=== PATIENT | female | born 1990 | race Caucasian/White ===

== ENCOUNTER 2017-07-06 21:01 | Emergency (ER) | payer MEDICAID, OTHER ==
[~2017-07-06] VITALS: Ht 165.1 cm; Wt 118.0 kg
[2017-07-06] MEDS ORDERED: DIPHENHYDRAMINE 50MG/ML VIAL IM ONE (21:45)
[2017-07-06] MEDS ORDERED: IBUPROFEN 800MG TABLET PO ONE (23:30)
[2017-07-07] MEDS ORDERED: METHYLPREDNISOLONE SOD SUCC 125 MG/2 ML VIAL IM ONE
[2017-07-07] MEDS ORDERED: PENICILLIN G BENZATHINE 1,200,000 UNITS/2ML SYR IM ONE (00:15)
[2017-07-07 00:50] VITALS: BP 113/71
== END 2017-07-07 00:51 | disposition home or self-care (01) ==
LOC: ER 22:16
DX: J02.0 Streptococcal pharyngitis (principal); F17.200 Nicotine dependence, unspecified, uncomplicated; R21 Rash and other nonspecific skin eruption; F12.10 Cannabis abuse, uncomplicated
CPT/HCPCS: 87430; 96372; 99284; J0561; J1200; J2930; Z7610

== ENCOUNTER 2017-07-09 12:04 | Emergency (ER) | payer MEDICAID, OTHER ==
[~2017-07-09] VITALS: Ht 175.3 cm; Wt 120.0 kg
[2017-07-09 17:00] VITALS: BP 117/78
== END 2017-07-09 17:00 | disposition home or self-care (01) ==
LOC: ER 14:42
DX: L08.89 Other specified local infections of the skin and subcutaneous tissue (principal); F12.10 Cannabis abuse, uncomplicated; F14.10 Cocaine abuse, uncomplicated
CPT/HCPCS: 81025; 99283; Z7610